=== PATIENT | male | born 2000 | race Caucasian/White ===

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

== ENCOUNTER 2021-09-03 21:31 | Emergency (ER) | payer MEDICAID ==
[~2021-09-03] VITALS: Ht 182.9 cm; Wt 77.1 kg
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
[2021-09-03] MEDS ORDERED: TDAP [DIPH/PERTUSSIS/TET] 0.5 ML VIAL IM ONE ×2 (22:30→22:52)
[2021-09-03] MEDS ORDERED: LIDOCAINE HCL/PF 1% 30 ML VIAL TP ONE (22:30)
[2021-09-03] MEDS ORDERED: ACETAMINOPHEN 325 MG TABLET PO ONE (22:30)
[2021-09-03] MEDS ORDERED: LIDOCAINE HCL/MPF 1% 30 ML VIAL IJ ONE ×2 (22:32→22:51)
[2021-09-03] MEDS ORDERED: CEPH500C2 PO (22:39)
--- NOTE | 2021-09-03 22:39 | NUR ---
AUTHORIZATION MANAGER AT BEDSIDE FOR WOUND CARE
[2021-09-03] MEDS ORDERED: ACETAMINOPHEN ES 500 MG TABLET ONE (22:52)
[2021-09-04] MEDS ORDERED: CEPH500C2 PO (00:18)
[2021-09-04 00:30] VITALS: BP 130/81
--- NOTE | 2021-09-04 00:30 | NUR ---
Patient discharged to home in stable condition. Written and verbal after care instructions given. Patient verbalizes understanding of instruction.
== END 2021-09-04 00:31 | disposition home or self-care (01) ==
LOC: ER 21:51
DX: S66.321A Laceration of extensor muscle, fascia and tendon of left index finger at wrist and hand level, initial encounter (principal); Z60.2 Problems related to living alone; Z79.899 Other long term (current) drug therapy; X58.XXXA Exposure to other specified factors, initial encounter; Y93.C1 Activity, computer keyboarding; Y92.89 Other specified places as the place of occurrence of the external cause; Y99.8 Other external cause status
CPT/HCPCS: 12002; 73140; 90471; 90715; 99283; A6403; J3490 ×3

== ENCOUNTER 2021-09-12 18:18 | Emergency (ER) | payer MEDICAID ==
[~2021-09-12] VITALS: Ht 182.9 cm; Wt 79.4 kg
[~2021-09-12 18:18] MED LIST: CEPH500C2 PO
[2021-09-12 18:20] VITALS: BP 121/66
--- NOTE | 2021-09-12 18:37 | NUR ---
Patient discharged to home in stable condition. Written and verbal after care instructions given. Patient verbalizes understanding of instruction.
== END 2021-09-12 18:38 | disposition home or self-care (01) ==
LOC: ER 18:20
DX: S61.211D Laceration without foreign body of left index finger without damage to nail, subsequent encounter (principal); Z48.02 Encounter for removal of sutures; Z60.2 Problems related to living alone; Z79.899 Other long term (current) drug therapy; X58.XXXD Exposure to other specified factors, subsequent encounter
CPT/HCPCS: 99281; A6403